=== PATIENT | female | born 1990 | race Caucasian/White ===

== ENCOUNTER 2020-04-16 20:54 | Emergency (ER) | payer MEDICAID ==
[~2020-04-16] VITALS: Ht 157.5 cm; Wt 59.0 kg
[~2020-04-16 20:54] MED LIST: NO MEDS
[2020-04-16 21:09] VITALS: BP 130/85
[2020-04-16] MEDS ORDERED: HALOPERIDOL IM 5 MG/ML VIAL IM ONE ×2 (21:30→21:31)
[2020-04-16] MEDS ORDERED: LORazepam 0.5 MG TAB PO ONE ×2 (21:30→21:31)
--- NOTE | 2020-04-16 21:31 | NUR ---
PER ERMD , ADMINISTER HALDOL 2.5 MG IM ONCE AND ATIVAN 0.5MG PO ONCE.
--- NOTE | 2020-04-16 21:45 | NUR ---
ADMINISTERED , PER ERMD MEDICATION ORDER, ATIVAN 0.5 MG PO AND HALDOL 2.5 MG IM AT THIS TIME.
[2020-04-16] MEDS ORDERED: LORazepam 0.5 MG TAB ONE (21:47)
[2020-04-16] MEDS ORDERED: HALOPERIDOL IM 5 MG/ML VIAL ONE (21:47)
--- NOTE | 2020-04-16 21:50 | NUR ---
29 Y/O FEMALE C/O BUG BITES X 1 DAY - PT STATES SAW BUGS IN HAIR AND HAS BITES ON ARMS AND LEGS. DENIES N/V/D; SKIN IS PINK/WARM/DRY; AAOX4 WITH EVEN AND STEADY GAIT; HR EVEN AND REGULAR; PT DENIES ANY FEVER, CP, SOB, OR COUGH AT THIS TIME; PATIENT STATES PAIN OF 0/10 AT THIS TIME; VSS; PATIENT POSITIONED FOR COMFORT; HOB ELEVATED; BEDRAILS UP X2; BED DOWN AND LOCKED. ER MADE AWARE OF PT STATUS. PMH:Nephrectomy AX: BACTRIM
[2020-04-16 21:58] VITALS: BP 130/85
== END 2020-04-16 21:58 | disposition home or self-care (01) ==
LOC: MED 20:54
DX: F41.1 Generalized anxiety disorder (principal)
CPT/HCPCS: 96372; 99283; J1630